=== PATIENT | male | born 1950 | race Caucasian/White ===

== ENCOUNTER 2016-07-04 08:57 | Inpatient (IN) | payer MEDICARE, OTHER ==
[~2016-07-04 08:57] MED LIST: Bisacodyl 5 MG Tab PO PRN; Lidocaine 1%/Sod Bicarbonate in NS 8.4% 1 ML Syringe IV PRN; Magnesium Hydroxide 400 MG/5 ML Susp 30 ML Cup PO PRN; Morphine 2 MG/ML Syringe IVPUSH PRN; Ondansetron 4 MG/2 ML SDV IVPUSH PRN; Sennosides 8.6 MG Tab PO PRN; Sodium Chloride 0.9% 10 ML Syringe FLUSH PRN
[2016-07-04] MEDS ORDERED: ceFAZolin 1 GM Vial ONE (09:14)
[2016-07-04] MEDS: Lactated Ringers 1,000 ML IV SCH ×2 (09:35→14:54)
[2016-07-04] MEDS ORDERED: Morphine PF 10 MG/10 ML SDV ONE (09:38)
--- NOTE | 2016-07-04 09:42 | PCM.PREANE ---
Preanesthetic Assessment - Anesthesia/Transfusion/Family Hx Anesthesia History: Prior Anesthesia Without Reaction Family History of Anesthesia Reaction: No Transfusion History: No Prior Transfusion(s) Type of Transfusion Reactions: Reports: Unknown - Review of Systems General: No Symptoms Pulmonary: Shortness of Breath (on occasion), Other (CXR shows atelectasis, smoker, sleep apnea) Cardiovascular: Other (stress test negative, EKG abnormal, HTN) Gastrointestinal: Other (occasion reflux) Neurological: No Symptoms Other: Reports: None - Physical Assessment NPO Status Date: 07/03/16 NPO Status Time: 23:00 Pulse: 83 O2 Sat by Pulse Oximetry: 92 Respiratory Rate: 16 Blood Pressure: 123/76 Temperature: 36.4 C Weight: 103 kg ASA Class: 3 Mental Status: Alert & Oriented x3 Dentition: Reports: Normal Dentition Thyro-Mental Finger Breadths: 3 Mouth Opening Finger Breadths: 3 ROM/Head Extension: Full Lungs: Clear to auscultation, Normal respiratory effort Cardiovascular: Regular Rate, Regular Rhythm - Lab Values: Laboratory Last Values MRSA (PCR) Negative 06/22/16 15:39 - Allergies Allergies/Adverse Reactions: Allergies Allergy/AdvReac Type Severity Reaction Status Date / Time Duvilzu-Vhn-Bok Reductase Allergy Muscle Verified 07/01/16 10:22 Inhibitor Weakness - Blood Blood Available: No Product(s) Available: None - Anesthesia Plan Pre-Op Medication Ordered: None - Acknowledgements Anesthesia Type Planned: Spinal Pt an Appropriate Candidate for the Planned Anesthesia: Yes Alternatives and Risks of Anesthesia Discussed w Pt/Guardian: Yes Pt/Guardian Understands and Agrees with Anesthesia Plan: Yes PreAnesthesia Questionnaire HEENT History: Reports: Allergic Rhinitis, Other (See Below) Other HEENT History: bruxism, jaw pain, wears glasses Cardiovascular History: Reports: Hypertension Respiratory History: Reports: Sleep Apnea Genitourinary History: Reports: Prostate Disorder, Other (See Below) Other Genitourinary History: enlarged prostate HIDE GRADER History: Reports: None Musculoskeletal History: Reports: Arthritis, Back Pain, Chronic, Other (See Below) Other Musculoskeletal History: sacroilitis Neurological History: Reports: Neuropathy, Peripheral Psychiatric History: Reports: Other (See Below) Other Psychiatric History: insomnia, irritability Endocrine/Metabolic History: Reports: None Hematologic History: Reports: None Immunologic History: Reports: None Oncologic (Cancer) History: Reports: None Dermatologic History: Reports: None - Past Surgical History Head Surgeries/Procedures: Reports: None GI Surgical History: Reports: Colonoscopy Musculoskeletal Surgical History: Reports: Other (See Below) Other Musculoskeletal Surgeries/Procedures:: neck surgery, low back surgery - SUBSTANCE USE Smoking Status *Q: Former Smoker Tobacco Use Within Last Twelve Months: Snuff/Dip Recreational Drug Use History: No - HOME MEDS Home Medications: Home Meds Ascorbic Acid [Vitamin C] 500 mg PO DAILY 07/01/16 [History] Cholecalciferol (Vitamin D3) [Vitamin D3] 2,000 unit PO DAILY 07/01/16 [History] Citalopram [Citalopram HBr] 40 mg PO DAILY 07/01/16 [History] Dutasteride 0.5 mg PO DAILY 07/01/16 [History] Gelatin 600 mg PO DAILY 07/01/16 [History] Gluc/Palomo-Msm#1/Vit C/Geoffrey/Bor [Iunlrwr-Zlraw-UBY Complex Cplt] 1 tab PO DAILY 07/01/16 [History] Lisinopril 40 mg PO DAILY 07/01/16 [History] Meloxicam [Meloxicam] 15 mg PO DAILY 07/01/16 [History] Tamsulosin HCl [Tamsulosin HCl] 0.4 mg PO DAILY 07/01/16 [History] Zolpidem Tartrate [Zolpidem Tartrate] 10 mg PO BEDTIME 07/01/16 [History] traMADol HCl [Tramadol HCl] 100 mg PO BID 07/01/16 [History] - CURRENT (IN HOUSE) MEDS Current Meds: Current Medications Aspirin (Ecotrin) 325 mg PO BID TARYN Bisacodyl (Dulcolax) 5 mg PO DAILY PRN PRN Reason: Constipation Morphine Sulfate 8 mg/Epinephrine HCl 0.3 mg/Cefuroxime Sodium 750 mg/Ketorolac Tromethamine 30 mg/Sodium Chloride 27.9 ml 0 mg .XX ONETIME ONE Stop: 07/04/16 10:01 Cyclobenzaprine HCl (Flexeril) 10 mg PO TID PRN PRN Reason: Spasms Docusate Sodium (Colace) 100 mg PO BID TARYN Famotidine (Pepcid) 20 mg PO Q12H TARYN Lactated Ringer's (Ringers, Lactated) 1,000 mls @ 125 mls/hr IV ASDIRECTED TARYN Cefazolin Sodium/Dextrose 2 gm (/ Premix) 50 mls @ 100 mls/hr IV Q8H [facility] Stop: 07/04/16 23:44 Lidocaine/Sodium Bicarbonate (Buffered Lidocaine 1% In Ns 8.4%) 0.25 ml IV ONETIME PRN PRN Reason: Prior to IV Start Magnesium Hydroxide (Milk Of Magnesia) 30 ml PO BID PRN PRN Reason: Constipation Morphine Sulfate (Morphine) 2 mg IVPUSH Q2H PRN PRN Reason: Breakthrough Pain Naloxone HCl (Narcan) 0.1 mg IVPUSH Q5M PRN PRN Reason: Oversedation Stop: 07/04/16 07:24 Ondansetron HCl (Zofran) 4 mg IVPUSH Q6H PRN PRN Reason: Nausea/Vomiting Oxycodone/Acetaminophen (Percocet 325-5 Mg) 1 - 2 tab PO Q4H PRN PRN Reason: Pain Senna (Senna) 8.6 mg PO BID PRN PRN Reason: Constipation Sodium Chloride (Saline Flush) 10 ml FLUSH ASDIRECTED PRN PRN Reason: Keep Vein Open Discontinued Medications Bupivacaine HCl (Marcaine 0.25%) Confirm Administered Dose 30 ml .ROUTE .STK- MED ONE Stop: 07/04/16 09:15 Cefazolin Sodium (Ancef) Confirm Administered Dose 1 gm .ROUTE .STK-MED ONE Stop: 07/04/16 09:15 Cefazolin Sodium (Ancef) Confirm Administered Dose 2 gm .ROUTE .STK-MED ONE Stop: 07/04/16 09:41 Iodine (Iodine 2% Mild Tincture) Confirm Administered Dose 30 ml .ROUTE .STK- MED ONE Stop: 07/04/16 09:15 Morphine Sulfate (Duramorph Pf) Confirm Administered Dose 10 mg .ROUTE .STK-MED ONE Stop: 07/04/16 09:39 Tranexamic Acid (Cyklokapron) Confirm Administered Dose 1,000 mg .ROUTE .STK- MED ONE Stop: 07/04/16 09:15
[2016-07-04] MEDS ORDERED: diphenhydrAMINE 50 MG/ML SDV IVPUSH PRN (09:47)
[2016-07-04] MEDS ORDERED: fentaNYL 100 MCG/2 ML SDV IVPUSH PRN (09:47)
[2016-07-04] MEDS ORDERED: Ondansetron 4 MG/2 ML SDV IVPUSH PRN (09:47)
[2016-07-04] MEDS ORDERED: Midazolam 1 MG/ML 2 ML SDV ONE (10:06)
[2016-07-04] MEDS ORDERED: Propofol 200 MG/20 ML SDV ONE ×4 (10:07→11:45)
[2016-07-04] MEDS ORDERED: Phenylephrine/Normal Saline 100 MCG/ML 10 ML Syringe ONE ×2 (10:51→11:34)
[2016-07-04] MEDS ORDERED: ePHEDrine/Normal Saline 25 MG/5 ML Syringe ONE ×3 (10:57→11:27)
[2016-07-04] MEDS ORDERED: Naloxone 0.4 MG/ML SDV IVPUSH PRN (11:00)
[2016-07-04] MEDS: Iodine/Sodium Iodide 2% Tincture 30 ML Bottle ONE ×2 (11:03→11:45)
[2016-07-04] MEDS: ceFAZolin 1 GM Vial ONE ×2 (11:05→11:48)
[2016-07-04] MEDS: Morphine 8 MG, EPINEPHrine 0.3 MG, Cefuroxime 750 MG, Ketorolac 30 MG, Sodium Chloride ... ONE ×10 (11:06→11:52)
[2016-07-04] MEDS: Bupivacaine 0.25% 30 ML SDV ONE ×2 (11:06→11:53)
[2016-07-04] MEDS ORDERED: Lactated Ringers 1,000 ML ONE (11:23)
[2016-07-04] MEDS ORDERED: fentaNYL 100 MCG/2 ML SDV ONE (11:58)
--- NOTE | 2016-07-04 12:28 | PCM.POSTAN ---
POST ANESTHESIA ASSESSMENT - MENTAL STATUS Mental Status: alert, oriented - VITAL SIGNS Pulse Rate: 80 SaO2: 93 Resp Rate: 12 Blood Pressure: 94/63 Temperature: 36.7 C - RESPIRATORY Respiratory Status: respiratory rate WNL, airway patent, O2 saturation stable - CARDIOVASCULAR CV Status: pulse rate WNL, blood pressure stable - GASTROINTESTINAL GI Status: no symptoms - PAIN Pain Score: 0 - POST OP HYDRATION Hydration Status: adequate & stable
[2016-07-04] MEDS ORDERED: Citalopram 20 MG Tab PO SCH (12:30)
[2016-07-04] MEDS ORDERED: Finasteride 5 MG Tab PO SCH (13:45)
--- NOTE | 2016-07-04 13:46 | CR ---
Pelvis and right hip: AP view of the pelvis was obtained as well as lateral view of the right hip. Comparison: Previous pelvis and right hip study of 07/29/15. Right hip prosthesis is seen. Components are aligned. Soft tissue air around the right hip from the surgical procedure is seen. Joint space within the left hip is preserved. Impression: 1. Recently placed right hip prosthesis. AP pelvis and lateral right hip exam is otherwise unremarkable. Diagnostic code #2
--- NOTE | 2016-07-04 15:12 | PCM.CONS ---
H&P History of Present Illness - General Date of Service: 07/04/16 Admit Problem/Dx: Admission Diagnosis/Problem Admission Diagnosis/Problem Osteoarthritis of hip Source of Information: Patient, Old Records, Police, Provider, RN Notes Reviewed History Limitations: Reports: Physical Impairment - History of Present Illness Initial Comments - Free Text/Narative: This is a 65-year-old, white male, with past medical history of HTN, BERTHA on CPAP , OA/DJD, AR, Back Pain, Peripheral Neuropathy, Insomnia and Bruxism who underwent status post right total hip arthroplasty post operative day zero. Patient is doing relatively well. Currently, his pain is controlled. He denies any acute issues. Medicine was consulted for postoperative care. Right Hip Pain Score (Numeric/FACES): 7 - Related Data Allergies/Adverse Reactions: Allergies Allergy/AdvReac Type Severity Reaction Status Date / Time Pncvurz-Jvn-Eli Reductase AdvReac Muscle Verified 07/04/16 11:14 Inhibitor Weakness Home Medications: Home Meds Ascorbic Acid [Vitamin C] 500 mg PO DAILY 07/01/16 [History] Cholecalciferol (Vitamin D3) [Vitamin D3] 2,000 unit PO DAILY 07/01/16 [History] Citalopram [Citalopram HBr] 40 mg PO Q2D 07/01/16 [History] Dutasteride 0.5 mg PO DAILY 07/01/16 [History] Gelatin 600 mg PO DAILY 07/01/16 [History] Gluc/Palomo-Msm#1/Vit C/Geoffrey/Bor [Plqyuwq-Ykclm-FDX Complex Cplt] 1 tab PO DAILY 07/01/16 [History] Lisinopril 40 mg PO DAILY 07/01/16 [History] Meloxicam [Meloxicam] 15 mg PO DAILY 07/01/16 [History] Tamsulosin HCl [Tamsulosin HCl] 0.4 mg PO DAILY 07/01/16 [History] Zolpidem Tartrate [Zolpidem Tartrate] 10 mg PO BEDTIME 07/01/16 [History] traMADol HCl [Tramadol HCl] 100 mg PO BID 07/01/16 [History] Cyclobenzaprine [Flexeril] 10 mg PO BEDTIME 07/04/16 [History] Past Medical History HEENT History: Reports: Allergic Rhinitis, Other (See Below) Other HEENT History: bruxism, jaw pain, wears glasses Cardiovascular History: Reports: Hypertension Respiratory History: Reports: Sleep Apnea, Other (See Below) Other Respiratory History: Uses CPAP Gastrointestinal History: Reports: None Genitourinary History: Reports: Prostate Disorder, Other (See Below) Other Genitourinary History: enlarged prostate CONSERVATION OFFICER History: Reports: None Musculoskeletal History: Reports: Arthritis, Back Pain, Chronic, Other (See Below) Other Musculoskeletal History: sacroilitis Neurological History: Reports: Neuropathy, Peripheral Psychiatric History: Reports: Other (See Below) Other Psychiatric History: insomnia, irritability Endocrine/Metabolic History: Reports: None Hematologic History: Reports: None Immunologic History: Reports: None Oncologic (Cancer) History: Reports: None Dermatologic History: Reports: None - Infectious Disease History Infectious Disease History: Reports: None - Past Surgical History Head Surgeries/Procedures: Reports: None HEENT Surgical History: Reports: None Cardiovascular Surgical History: Reports: None Respiratory Surgical History: Reports: None GI Surgical History: Reports: Colonoscopy Male Surgical History: Reports: None Neurological Surgical History: Reports: Lumbar Spine, Other (See Below) Other Neurological Surgeries/Procedures: Cervical fusion Musculoskeletal Surgical History: Reports: Other (See Below) Other Musculoskeletal Surgeries/Procedures:: cervical surgery, low back surgery Dermatological Surgical History: Reports: None Social & Family History - Family History Family Medical History: Unobtainable - Tobacco Use Smoking Status *Q: Former Smoker Used Tobacco, but Quit: Yes Month Tobacco Last Used: Mar 2016 Tobacco Use Comment: Patient states he quit chewing tobacco on March 16, 2016 - Recreational Drug Use Recreational Drug Use: No H&P Review of Systems - Review of Systems: Review Of Systems: See Below General: Denies: Fever, Chills, Malaise, Weakness, Fatigue HEENT: Reports: No Symptoms Pulmonary: Denies: Shortness of Breath Cardiovascular: Denies: Chest Pain Gastrointestinal: Denies: Abdominal Pain, Nausea, Vomiting Genitourinary: Reports: No Symptoms Musculoskeletal: Reports: Joint Pain Skin: Denies: Cyanosis, Pruritis Psychiatric: Denies: Confusion, Depression, Anxiety, Agitation, Hallucinations Neurological: Reports: Difficulty Walking, Gait Disturbance. Denies: Confusion Hematologic/Lymphatic: Reports: No Symptoms Immunologic: Reports: No Symptoms Exam - Exam Exam: See Below - Vital Signs Vital Signs: Last Vital Signs Temp 36.2 C 07/04/16 13:10 Pulse 80 07/04/16 12:28 Resp 14 07/04/16 13:10 BP 99/64 07/04/16 13:10 Pulse Ox 94 L 07/04/16 13:10 Weight: 103.238 kg - Exam Quality Assessment: No: Supplemental Oxygen General: Alert, Oriented, Cooperative. No: Mild Distress HEENT: Conjunctiva Clear, EACs Clear, EOMI, Hearing Intact, Mucosa Moist & [place] , Nares Patent, Normal Nasal Septum, Posterior Pharynx Clear, Pupils Equal, Pupils Reactive Neck: Supple, Trachea Midline Lungs: Clear to Auscultation, Normal Respiratory Effort Cardiovascular: Regular Rate, Regular Rhythm Abdomen: Normal Bowel Sounds, Soft. No: Organomegaly, Tenderness (Male) Exam: Other (indwelling sanon catheter) Rectal (Males) Exam: Deferred Back Exam: Normal Inspection, Decreased Range of Motion Extremities: Normal Inspection, Normal Pulses. No: Cyanosis, Edema, Increased Warmth Peripheral Pulses: 2+: Posterior Tibial (L), Posterior Tibial (R), Dorsalis Pedis (L), Dorsalis Pedis (R) Skin: Warm, Dry, Intact Neuro Extensive - Mental Status: Oriented x3, Normal Cognition, Memory Intact Neuro Extensive - Motor, Sensory, Reflexes: CN II-XII Intact (limited but fairly stable), Abnormal Gait Psychiatric: Alert, Normal Affect, Normal Mood - Patient Data Lab Results last 24 hrs: Laboratory Results - last 24 hr 07/04/16 Range/Units 09:36 Blood Type A POSITIVE Gel Antibody Screen Negative Consult PN Assessment/Plan POD#: 0 Procedures: Procedures ASSAY OF FERRITIN (06/20/16) ASSAY OF PREALBUMIN (06/20/16) ASSAY THYROID STIM HORMONE (01/05/16) CARDIOVASCULAR STRESS TEST (06/24/16) CHEST X-RAY 2VW FRONTAL&LATL (06/20/16) COMPLETE CBC W/AUTO DIFF WBC (06/20/16) COMPREHEN METABOLIC PANEL (06/20/16) DRAIN/INJ JOINT/BURSA W/O US (01/01/16) HT MUSCLE IMAGE SPECT MULT (06/24/16) LIPID PANEL (01/05/16) PROTHROMBIN TIME (06/20/16) THROMBOPLASTIN TIME PARTIAL (06/20/16) URINE CULTURE/COLONY COUNT (06/21/16) VITAMIN D 25 HYDROXY (06/20/16) X-RAY EXAM HIP UNI 1 VIEW (07/29/15) X-RAY EXAM L-S SPINE 2/3 VWS (07/29/15) Problem List Initiated/Reviewed/Updated: Yes Plan: Assessment: Acute: Post-Operative Care State - Stable - Continue to monitor for hemodynamic instability S/p Right Total Hip Arthroplasty - Stable - DVT and Pain Management as per primary team Hx/o Chronic Pain Right Hip - Pain Management as per primary team Chronic: HTN BERTHA on CPAP OA AR Back Pain Peripheral Neuropathy BPH Bruxism Insomnia Plan: He is clinically stable Routine AM labs Continue home meds Hold Ambien and will try Restoril tonight CPAP to use QHS PT/OT consult IS q2 awake Thank you for the opportunity to participate in the management of this patient. Requesting Provider: Dr. Paz Date Consult Requested: 07/04/16 Reason for Consult: Post-Operative Care Patient History Reviewed: Yes Admission H&P Reviewed: Yes Consult Result/Summary: Stable
[2016-07-04] MEDS: Lisinopril 20 MG Tab PO SCH (16:42)
[2016-07-04] MEDS: Cyclobenzaprine 10 MG Tab PO PRN (16:43)
[2016-07-04] MEDS: Acetaminophen/oxyCODONE 325-5 MG Tab PO PRN ×2 (16:45→21:29)
[2016-07-04] MEDS ORDERED: Tamsulosin 0.4 MG Cap.ER PO SCH (17:30)
[2016-07-04] MEDS ORDERED: Temazepam 30 MG Cap PO PRN (18:24)
[2016-07-04] MEDS: ceFAZolin 2 GM in Premix Bag 1 BAG IV SCH (19:12)
[2016-07-04] MEDS ORDERED: LORazepam 2 MG/ML MDV IVPUSH ONE (21:00)
[2016-07-04] MEDS: Docusate Sodium 100 MG Cap PO SCH (21:29)
[2016-07-04] MEDS: Famotidine 20 MG Tab PO SCH (21:29)
[2016-07-05] MEDS: Cyclobenzaprine 10 MG Tab PO PRN ×3 (02:43→16:10)
[2016-07-05] MEDS: Acetaminophen/oxyCODONE 325-5 MG Tab PO PRN ×4 (02:43→16:10)
[2016-07-05] MEDS: ceFAZolin 2 GM in Premix Bag 1 BAG IV SCH ×2 (03:00→10:48)
[2016-07-05] MEDS: Famotidine 20 MG Tab PO SCH (08:36)
[2016-07-05] MEDS: Docusate Sodium 100 MG Cap PO SCH (08:36)
[2016-07-05] MEDS: Lisinopril 20 MG Tab PO SCH (08:37)
[2016-07-05] MEDS ORDERED: Aspirin 325 MG Tab.EC PO SCH (09:00)
[2016-07-05] MEDS ORDERED: Cholecalciferol (Vitamin D3) 1,000 Unit Tab PO SCH (09:00)
--- NOTE | 2016-07-05 09:38 | PCM.PN ---
- General Info Date of Service: 07/05/16 Admission Dx/Problem (Free Text): Admission Diagnosis/Problem Admission Diagnosis/Problem Osteoarthritis of hip POD #[address] Paz; pain under good control. No nausea. Worked with PT this morning. Plans for dc home today. Functional Status: Reports: pain controlled, tolerating diet, ambulating, urinating - Review of Systems General: Reports: No Symptoms HEENT: Reports: no symptoms Pulmonary: Reports: no symptoms. Denies: shortness of breath, cough Cardiovascular: Reports: No Symptoms. Denies: Chest Pain, Palpitations, Dyspnea on Exertion Gastrointestinal: Reports: No symptoms Genitourinary: Reports: no symptoms. Denies: retention Musculoskeletal: Reports: leg pain Neurological: Reports: No Symptoms Psychiatric: Reports: no symptoms - Patient Data Vitals - most recent: Last Vital Signs Temp 98.8 F 07/05/16 08:00 Pulse 92 07/05/16 08:00 Resp 18 07/05/16 08:00 BP 112/65 07/05/16 08:37 Pulse Ox 96 07/05/16 09:00 Weight - most recent: 227 lb 9.6 oz I&O - last 24 hours: Intake & Output 07/04/16 07/05/16 07/05/16 22:59 06:59 14:59 Intake Total 400 1050 Output Total 300 500 Balance 100 550 Lab Results last 24 hrs: Laboratory Results - last 24 hr 07/04/16 07/05/16 07/05/16 Range/Units 09:36 06:29 06:29 WBC 9.53 H (4.23-9.07) K/mm3 RBC 4.25 L (4.63-6.08) M/mm3 Hgb 12.2 L (13.7-17.5) gm/L Hct 36.2 L (40.1-51.0) % MCV 85.2 (79.0-92.2) fl MCH 28.7 (25.7-32.2) pg MCHC 33.7 (32.2-35.5) g/dl RDW Std Deviation 41.1 (35.1-43.9) fL Plt Count 191 (163-337) K/mm3 MPV 9.3 L (9.4-12.3) fl Neut % (Auto) 77.0 H (34.0-67.9) % Lymph % (Auto) 13.3 L (21.8-53.1) % [place] % (Auto) 9.1 (5.3-12.2) % Eos % (Auto) 0.3 L (0.8-7.0) Baso % (Auto) 0.2 (0.1-1.2) % Neut # (Auto) 7.33 H (1.78-5.38) K/mm3 Lymph # (Auto) 1.27 L (1.32-3.57) K/mm3 [place] # (Auto) 0.87 H (0.30-0.82) K/mm3 Eos # (Auto) 0.03 L (0.04-0.54) K/mm3 Baso # (Auto) 0.02 (0.01-0.08) K/mm3 Sodium 136 (136-145) mEq/L Potassium 4.5 (3.5-5.1) mEq/L Chloride 102 (98-107) mEq/L Carbon Dioxide 24 (21-32) mEq/L Anion Gap 14.5 (5-15) BUN 19 H (7-18) mg/dL Creatinine 1.1 (0.7-1.3) mg/dL Est Cr Clr Drug Dosing 68.21 mL/min Estimated GFR (MDRD) > 60 (>60) mL/min BUN/Creatinine Ratio 17.3 (14-18) Glucose 144 H (80-115) mg/dL Calcium 8.3 L (8.5-10.1) mg/dL Total Bilirubin 0.5 (0.2-1.0) mg/dL AST 26 (15-37) U/L ALT 29 (16-63) U/L Alkaline Phosphatase 37 L (46-116) U/L Total Protein 6.0 L (6.4-8.2) g/dl Albumin 3.0 L (3.4-5.0) g/dl Globulin 3.0 gm/dL Albumin/Globulin Ratio 1.0 (1-2) Blood Type A POSITIVE Gel Antibody Screen Negative Med Orders - Current: Current Medications Aspirin (Ecotrin) 325 mg PO BID TARY[facility] Last Admin: 07/05/16 08:39 Dose: 325 mg Bisacodyl (Dulcolax) 5 mg PO DAILY PRN PRN Reason: Constipation Cholecalciferol (Vitamin D3) 2,000 units PO DAILY [facility] Last Admin: 07/05/16 08:36 Dose: 2,000 units Citalopram Hydrobromide (Celexa) 40 mg PO Q2D [facility] Last Admin: 07/04/16 16:43 Dose: 40 mg Cyclobenzaprine HCl (Flexeril) 10 mg PO TID PRN PRN Reason: Spasms Last Admin: 07/05/16 08:37 Dose: 10 mg Docusate Sodium (Colace) 100 mg PO BID [facility] Last Admin: 07/05/16 08:36 Dose: 100 mg Famotidine (Pepcid) 20 mg PO BID [facility] Last Admin: 07/05/16 08:36 Dose: 20 mg Finasteride (Proscar) 5 mg PO BEDTIME [facility] Cefazolin Sodium/Dextrose 2 gm (/ Premix) 50 mls @ 100 mls/hr IV Q8H [facility] Stop: 07/05/16 10:29 Last Admin: 07/05/16 03:00 Dose: 100 mls/hr Lisinopril (Prinivil) 40 mg PO DAILY [facility] Last Admin: 07/05/16 08:37 Dose: 40 mg Magnesium Hydroxide (Milk Of Magnesia) 30 ml PO BID PRN PRN Reason: Constipation Morphine Sulfate (Morphine) 2 mg IVPUSH Q2H PRN PRN Reason: Breakthrough Pain Ondansetron HCl (Zofran) 4 mg IVPUSH Q6H PRN PRN Reason: Nausea/Vomiting Oxycodone/Acetaminophen (Percocet 325-5 Mg) 1 - 2 tab PO Q4H PRN PRN Reason: Pain Last Admin: 07/05/16 07:59 Dose: 2 tab Senna (Senna) 8.6 mg PO BID PRN PRN Reason: Constipation Tamsulosin HCl (Flomax) 0.4 mg PO BEDTIME [facility] Temazepam (Restoril) 30 mg PO BEDTIME PRN PRN Reason: Insomnia Discontinued Medications Bupivacaine HCl (Marcaine 0.25%) Confirm Administered Dose 30 ml .ROUTE .STK- MED ONE Stop: 07/04/16 09:15 Last Admin: 07/04/16 11:53 Dose: 30 ml Cefazolin Sodium (Ancef) Confirm Administered Dose 1 gm .ROUTE .STK-MED ONE Stop: 07/04/16 09:15 Cefazolin Sodium (Ancef) Confirm Administered Dose 2 gm .ROUTE .STK-MED ONE Stop: 07/04/16 09:41 Last Admin: 07/04/16 11:48 Dose: 2 gm Morphine Sulfate 8 mg/Epinephrine HCl 0.3 mg/Cefuroxime Sodium 750 mg/Ketorolac Tromethamine 30 mg/Sodium Chloride 27.9 ml 0 mg .XX ONETIME ONE Stop: 07/04/16 10:01 Last Admin: 07/04/16 11:52 Dose: 788.3 mg Diphenhydramine HCl (Benadryl) 25 mg IVPUSH Q6H PRN PRN Reason: itching Stop: 07/04/16 12:00 Ephedrine Sulfate (Ephedrine In Ns) Confirm Administered Dose 25 mg .ROUTE .STK- MED ONE Stop: 07/04/16 10:58 Ephedrine Sulfate (Ephedrine In Ns) Confirm Administered Dose 25 mg .ROUTE .STK- MED ONE Stop: 07/04/16 11:23 Ephedrine Sulfate (Ephedrine In Ns) Confirm Administered Dose 25 mg .ROUTE .STK- MED ONE Stop: 07/04/16 11:28 Fentanyl (Sublimaze) 50 mcg IVPUSH Q5M PRN PRN Reason: pain Stop: 07/04/16 12:00 Fentanyl (Sublimaze) Confirm Administered Dose 100 mcg .ROUTE .STK-MED ONE Stop: 07/04/16 11:59 Finasteride (Proscar) 5 mg PO DAILY [facility] Last Admin: 07/04/16 20:43 Dose: 5 mg Lactated Ringer's (Ringers, Lactated) 1,000 mls @ 125 mls/hr IV ASDIRECTED [facility] Stop: 07/04/16 23:00 Last Admin: 07/04/16 14:54 Dose: 125 mls/hr Lactated Ringer's (Ringers, Lactated) Confirm Administered Dose 1,000 mls @ as directed .ROUTE .STK-MED ONE Stop: 07/04/16 11:24 Iodine (Iodine 2% Mild Tincture) Confirm Administered Dose 30 ml .ROUTE .STK- MED ONE Stop: 07/04/16 09:15 Last Admin: 07/04/16 11:45 Dose: 18 ml Lidocaine/Sodium Bicarbonate (Buffered Lidocaine 1% In Ns 8.4%) 0.25 ml IV ONETIME PRN PRN Reason: Prior to IV Start Last Admin: 07/04/16 09:35 Dose: 0.25 ml Lorazepam (Ativan) 1 mg IVPUSH BEDTIME ONE Stop: 07/04/16 21:01 Last Admin: 07/04/16 23:02 Dose: 1 mg Midazolam HCl (Versed 1 Mg/Ml) Confirm Administered Dose 2 mg .ROUTE .STK-MED ONE Stop: 07/04/16 10:07 Morphine Sulfate (Duramorph Pf) Confirm Administered Dose 10 mg .ROUTE .STK-MED ONE Stop: 07/04/16 09:39 Naloxone HCl (Narcan) 0.1 mg IVPUSH Q5M PRN PRN Reason: Oversedation Stop: 07/04/16 11:16 Ondansetron HCl (Zofran) 4 mg IVPUSH ONETIME PRN PRN Reason: Nausea/Vomiting Stop: 07/04/16 12:00 Phenylephrine HCl (Phenylephrine In Ns 100 Mcg/Ml) Confirm Administered Dose 1 mg .ROUTE .STK-MED ONE Stop: 07/04/16 10:52 Phenylephrine HCl (Phenylephrine In Ns 100 Mcg/Ml) Confirm Administered Dose 1 mg .ROUTE .STK-MED ONE Stop: 07/04/16 11:35 Propofol (Diprivan 20 Ml) Confirm Administered Dose 200 mg .ROUTE .STK-MED ONE Stop: 07/04/16 10:08 Propofol (Diprivan 20 Ml) Confirm Administered Dose 200 mg .ROUTE .STK-MED ONE Stop: 07/04/16 10:08 Propofol (Diprivan 20 Ml) Confirm Administered Dose 200 mg .ROUTE .STK-MED ONE Stop: 07/04/16 11:14 Propofol (Diprivan 20 Ml) Confirm Administered Dose 200 mg .ROUTE .STK-MED ONE Stop: 07/04/16 11:46 Sodium Chloride (Saline Flush) 10 ml FLUSH ASDIRECTED PRN PRN Reason: Keep Vein Open Tamsulosin HCl (Flomax) 0.4 mg PO DAILY@1730 [facility]N Last Admin: 07/04/16 20:43 Dose: 0.4 mg Tranexamic Acid (Cyklokapron) Confirm Administered Dose 1,000 mg .ROUTE .STK- MED ONE Stop: 07/04/16 09:15 Last Admin: 07/04/16 11:58 Dose: 1,000 mg - Exam Quality Assessment: DVT prophylaxis General: alert, oriented, cooperative, no acute distress HEENT: Pupils equal, Pupils reactive, EOMI, Mucous membr. moist/pink Neck: supple Lungs: Clear to auscultation, Normal respiratory effort Cardiovascular: Regular Rate, Regular Rhythm Abdomen: bowel sounds present, soft, no tenderness, no distension (Male) Exam: Deferred Extremities: other (scd's/ teds) Peripheral Pulses: 1+: Dorsalis Pedis (L), Dorsalis Pedis (R) Skin: warm, dry Wound/Incisions: dressing dry and intact Neurological: no new focal deficit Psy/Mental Status: alert, normal affect, normal mood - Problem List & Annotations (1) S/P total hip arthroplasty SNOMED Code(s): 016487390935, 684401316997 Code(s): Z96.649 - PRESENCE OF UNSPECIFIED ARTIFICIAL HIP JOINT Status: Acute Priority: High Current Visit: Yes Qualifiers: Laterality: right Qualified Code(s): Z96.641 - Presence of right artificial hip joint (2) Osteoarthritis SNOMED Code(s): 142715779 Code(s): M19.90 - UNSPECIFIED OSTEOARTHRITIS, UNSPECIFIED SITE Status: Acute Priority: High Current Visit: Yes Qualifiers: Osteoarthritis location: hip Osteoarthritis type: primary Laterality: right Qualified Code(s): M16.11 - Unilateral primary osteoarthritis, right hip (3) BPH (benign prostatic hyperplasia) SNOMED Code(s): 193920272, 810559909 Code(s): N40.0 - BENIGN PROSTATIC HYPERPLASIA WITHOUT LOWER URINRY TRACT SYMP Status: Chronic Priority: Medium Current Visit: Yes Qualifiers: Lower urinary tract symptom presence: presence of symptoms unspecified (4) BERTHA on CPAP SNOMED Code(s): 03326393 Code(s): G47.33 - OBSTRUCTIVE SLEEP APNEA (ADULT) (PEDIATRIC); Z99.89 - DEPENDENCE ON OTHER ENABLING MACHINES AND DEVICES Status: Chronic Priority: Medium Current Visit: No (5) HTN (hypertension) SNOMED Code(s): 64740614 Code(s): I10 - ESSENTIAL (PRIMARY) HYPERTENSION Status: Chronic Priority : Medium Current Visit: No Qualifiers: Hypertension type: essential hypertension Qualified Code(s): I10 - Essential (primary) hypertension - Problem List Review Problem List Initiated/Reviewed/Updated: Yes - Plan Plan:: I/P: S/P Rt PRUDENCE with Dr. Paz: POD #1 -Pain managment and DVT prophylax per ortho -PT/OT -IS, C&DB -hgb 12.2 today; other labs stable -VSS; on RA Urinary retention postop with hx of BPH--resolved -patient did void spontaneously this afternoon Chronic conditions: BERTHA on CPAP HTN- cont home meds, stable. Other: GI/DVT prophylax as above PT/OT CM/SW for assist with DC planning; plans DC home --OK from hospitalist standpoint for DC today, is medically stable. Patient is Full Code status.
--- NOTE | 2016-07-05 10:08 | PCM48HPAN ---
Post Anesthesia Note - EVALUATION WITHIN 48HRS OF ANESTHETIC Vital Signs in Normal Range: Yes Patient Participated in Evaluation: Yes Respiratory Function Stable: Yes Airway Patent: Yes Cardiovascular Function Stable: Yes Hydration Status Stable: Yes Pain Control Satisfactory: Yes (taking pain meds) Nausea and Vomiting Control Satisfactory: Yes Mental Status Recovered: Yes
[2016-07-05] MEDS ORDERED: Finasteride 5 MG Tab PO ONE (10:42)
[2016-07-05 11:10] VITALS: BP 115/70
--- NOTE | 2016-07-05 17:06 | PCM.SURGPN ---
- General Info Date of Service: 07/05/16 POD#: 1 Functional Status: Reports: pain controlled, tolerating diet, ambulating, urinating. Denies: new symptoms - Review of Systems Musculoskeletal: Reports: other (The pt feels prepared for discharge to home. He progressed well with P.T. today.) - Patient Data Vitals - most recent: Last Vital Signs Temp 98.8 F 07/05/16 11:08 Pulse 100 07/05/16 11:08 Resp 16 07/05/16 11:08 BP 115/70 07/05/16 11:08 Pulse Ox 97 07/05/16 12:00 Weight - most recent: 227 lb 9.6 oz I&O - last 24 hours: Intake & Output 07/05/16 07/05/16 07/05/16 06:59 14:59 22:59 Intake Total 1050 210 Output Total 500 400 Balance 550 -190 Lab Results last 24 hrs: Laboratory Results - last 24 hr 07/04/16 07/05/16 07/05/16 Range/Units 09:36 06:29 06:29 WBC 9.53 H (4.23-9.07) K/mm3 RBC 4.25 L (4.63-6.08) M/mm3 Hgb 12.2 L (13.7-17.5) gm/L Hct 36.2 L (40.1-51.0) % MCV 85.2 (79.0-92.2) fl MCH 28.7 (25.7-32.2) pg MCHC 33.7 (32.2-35.5) g/dl RDW Std Deviation 41.1 (35.1-43.9) fL Plt Count 191 (163-337) K/mm3 MPV 9.3 L (9.4-12.3) fl Neut % (Auto) 77.0 H (34.0-67.9) % Lymph % (Auto) 13.3 L (21.8-53.1) % [place] % (Auto) 9.1 (5.3-12.2) % Eos % (Auto) 0.3 L (0.8-7.0) Baso % (Auto) 0.2 (0.1-1.2) % Neut # (Auto) 7.33 H (1.78-5.38) K/mm3 Lymph # (Auto) 1.27 L (1.32-3.57) K/mm3 [place] # (Auto) 0.87 H (0.30-0.82) K/mm3 Eos # (Auto) 0.03 L (0.04-0.54) K/mm3 Baso # (Auto) 0.02 (0.01-0.08) K/mm3 Sodium 136 (136-145) mEq/L Potassium 4.5 (3.5-5.1) mEq/L Chloride 102 (98-107) mEq/L Carbon Dioxide 24 (21-32) mEq/L Anion Gap 14.5 (5-15) BUN 19 H (7-18) mg/dL Creatinine 1.1 (0.7-1.3) mg/dL Est Cr Clr Drug Dosing 68.21 mL/min Estimated GFR (MDRD) > 60 (>60) mL/min BUN/Creatinine Ratio 17.3 (14-18) Glucose 144 H (80-115) mg/dL Calcium 8.3 L (8.5-10.1) mg/dL Total Bilirubin 0.5 (0.2-1.0) mg/dL AST 26 (15-37) U/L ALT 29 (16-63) U/L Alkaline Phosphatase 37 L (46-116) U/L Total Protein 6.0 L (6.4-8.2) g/dl Albumin 3.0 L (3.4-5.0) g/dl Globulin 3.0 gm/dL Albumin/Globulin Ratio 1.0 (1-2) Blood Type A POSITIVE Gel Antibody Screen Negative Med Orders - Current: Current Medications Aspirin (Ecotrin) 325 mg PO BID [facility] Last Admin: 07/05/16 08:39 Dose: 325 mg Bisacodyl (Dulcolax) 5 mg PO DAILY PRN PRN Reason: Constipation Cholecalciferol (Vitamin D3) 2,000 units PO DAILY [facility] Last Admin: 07/05/16 08:36 Dose: 2,000 units Citalopram Hydrobromide (Celexa) 40 mg PO Q2D [facility] Last Admin: 07/04/16 16:43 Dose: 40 mg Cyclobenzaprine HCl (Flexeril) 10 mg PO TID PRN PRN Reason: Spasms Last Admin: 07/05/16 16:10 Dose: 10 mg Docusate Sodium (Colace) 100 mg PO BID [facility] Last Admin: 07/05/16 08:36 Dose: 100 mg Famotidine (Pepcid) 20 mg PO BID [facility] Last Admin: 07/05/16 08:36 Dose: 20 mg Finasteride (Proscar) 5 mg PO BEDTIME [facility] Lisinopril (Prinivil) 40 mg PO DAILY [facility] Last Admin: 07/05/16 08:37 Dose: 40 mg Magnesium Hydroxide (Milk Of Magnesia) 30 ml PO BID PRN PRN Reason: Constipation Morphine Sulfate (Morphine) 2 mg IVPUSH Q2H PRN PRN Reason: Breakthrough Pain Ondansetron HCl (Zofran) 4 mg IVPUSH Q6H PRN PRN Reason: Nausea/Vomiting Oxycodone/Acetaminophen (Percocet 325-5 Mg) 1 - 2 tab PO Q4H PRN PRN Reason: Pain Last Admin: 07/05/16 16:10 Dose: 2 tab Senna (Senna) 8.6 mg PO BID PRN PRN Reason: Constipation Tamsulosin HCl (Flomax) 0.4 mg PO BEDTIME [facility] Temazepam (Restoril) 30 mg PO BEDTIME PRN PRN Reason: Insomnia Discontinued Medications Bupivacaine HCl (Marcaine 0.25%) Confirm Administered Dose 30 ml .ROUTE .STK- MED ONE Stop: 07/04/16 09:15 Last Admin: 07/04/16 11:53 Dose: 30 ml Cefazolin Sodium (Ancef) Confirm Administered Dose 1 gm .ROUTE .STK-MED ONE Stop: 07/04/16 09:15 Cefazolin Sodium (Ancef) Confirm Administered Dose 2 gm .ROUTE .STK-MED ONE Stop: 07/04/16 09:41 Last Admin: 07/04/16 11:48 Dose: 2 gm Morphine Sulfate 8 mg/Epinephrine HCl 0.3 mg/Cefuroxime Sodium 750 mg/Ketorolac Tromethamine 30 mg/Sodium Chloride 27.9 ml 0 mg .XX ONETIME ONE Stop: 07/04/16 10:01 Last Admin: 07/04/16 11:52 Dose: 788.3 mg Diphenhydramine HCl (Benadryl) 25 mg IVPUSH Q6H PRN PRN Reason: itching Stop: 07/04/16 12:00 Ephedrine Sulfate (Ephedrine In Ns) Confirm Administered Dose 25 mg .ROUTE .STK- MED ONE Stop: 07/04/16 10:58 Ephedrine Sulfate (Ephedrine In Ns) Confirm Administered Dose 25 mg .ROUTE .STK- MED ONE Stop: 07/04/16 11:23 Ephedrine Sulfate (Ephedrine In Ns) Confirm Administered Dose 25 mg .ROUTE .STK- MED ONE Stop: 07/04/16 11:28 Fentanyl (Sublimaze) 50 mcg IVPUSH Q5M PRN PRN Reason: pain Stop: 07/04/16 12:00 Fentanyl (Sublimaze) Confirm Administered Dose 100 mcg .ROUTE .STK-MED ONE Stop: 07/04/16 11:59 Finasteride (Proscar) 5 mg PO DAILY [facility] Last Admin: 07/04/16 20:43 Dose: 5 mg Finasteride (Proscar) 5 mg PO ONETIME ONE Stop: 07/05/16 10:43 Last Admin: 07/05/16 12:07 Dose: 5 mg Lactated Ringer's (Ringers, Lactated) 1,000 mls @ 125 mls/hr IV ASDIRECTED [facility] Stop: 07/04/16 23:00 Last Admin: 07/04/16 14:54 Dose: 125 mls/hr Cefazolin Sodium/Dextrose 2 gm (/ Premix) 50 mls @ 100 mls/hr IV Q8H [facility] Stop: 07/05/16 10:29 Last Admin: 07/05/16 10:48 Dose: 100 mls/hr Lactated Ringer's (Ringers, Lactated) Confirm Administered Dose 1,000 mls @ as directed .ROUTE .STK-MED ONE Stop: 07/04/16 11:24 Iodine (Iodine 2% Mild Tincture) Confirm Administered Dose 30 ml .ROUTE .STK- MED ONE Stop: 07/04/16 09:15 Last Admin: 07/04/16 11:45 Dose: 18 ml Lidocaine/Sodium Bicarbonate (Buffered Lidocaine 1% In Ns 8.4%) 0.25 ml IV ONETIME PRN PRN Reason: Prior to IV Start Last Admin: 07/04/16 09:35 Dose: 0.25 ml Lorazepam (Ativan) 1 mg IVPUSH BEDTIME ONE Stop: 07/04/16 21:01 Last Admin: 07/04/16 23:02 Dose: 1 mg Midazolam HCl (Versed 1 Mg/Ml) Confirm Administered Dose 2 mg .ROUTE .STK-MED ONE Stop: 07/04/16 10:07 Morphine Sulfate (Duramorph Pf) Confirm Administered Dose 10 mg .ROUTE .STK-MED ONE Stop: 07/04/16 09:39 Naloxone HCl (Narcan) 0.1 mg IVPUSH Q5M PRN PRN Reason: Oversedation Stop: 07/04/16 11:16 Ondansetron HCl (Zofran) 4 mg IVPUSH ONETIME PRN PRN Reason: Nausea/Vomiting Stop: 07/04/16 12:00 Phenylephrine HCl (Phenylephrine In Ns 100 Mcg/Ml) Confirm Administered Dose 1 mg .ROUTE .STK-MED ONE Stop: 07/04/16 10:52 Phenylephrine HCl (Phenylephrine In Ns 100 Mcg/Ml) Confirm Administered Dose 1 mg .ROUTE .STK-MED ONE Stop: 07/04/16 11:35 Propofol (Diprivan 20 Ml) Confirm Administered Dose 200 mg .ROUTE .STK-MED ONE Stop: 07/04/16 10:08 Propofol (Diprivan 20 Ml) Confirm Administered Dose 200 mg .ROUTE .STK-MED ONE Stop: 07/04/16 10:08 Propofol (Diprivan 20 Ml) Confirm Administered Dose 200 mg .ROUTE .STK-MED ONE Stop: 07/04/16 11:14 Propofol (Diprivan 20 Ml) Confirm Administered Dose 200 mg .ROUTE .STK-MED ONE Stop: 07/04/16 11:46 Sodium Chloride (Saline Flush) 10 ml FLUSH ASDIRECTED PRN PRN Reason: Keep Vein Open Tamsulosin HCl (Flomax) 0.4 mg PO DAILY@1730 TARYN Last Admin: 07/04/16 20:43 Dose: 0.4 mg Tranexamic Acid (Cyklokapron) Confirm Administered Dose 1,000 mg .ROUTE .STK- MED ONE Stop: 07/04/16 09:15 Last Admin: 07/04/16 11:58 Dose: 1,000 mg - Exam Wound/Incisions: dressing dry and intact General: alert, cooperative, no acute distress Lungs: Normal respiratory effort Extremities: normal pulses, no calf tenderness, other (NVS intact for RLE. Right thigh soft and nontender. Alix's negative.) - Problem List Review Problem List Initiated/Reviewed/Updated: Yes - My Orders Last 24 Hours: Active Orders 24 hr Category Date Time Status Ready for Discharge [RC] PER UNIT ROUTINE Care 07/05/16 13:09 Active Aspirin [Ecotrin] Med 07/05/16 09:00 Active 325 mg PO BID Cholecalciferol (Vitamin D3) [Vitamin D3] Med 07/05/16 09:00 Active 2,000 units PO DAILY Docusate Sodium [Colace] Med 07/04/16 21:00 Active 100 mg PO BID Famotidine [Pepcid] Med 07/04/16 21:00 Active 20 mg PO BID Finasteride [Proscar] Med 07/05/16 21:00 Active 5 mg PO BEDTIME Tamsulosin [Flomax] Med 07/05/16 21:00 Active 0.4 mg PO BEDTIME Temazepam [Restoril] Med 07/04/16 18:24 Active 30 mg PO BEDTIME PRN Medication Orders Aspirin (Ecotrin) 325 mg PO BID [facility] Last Admin: 07/05/16 08:39 Dose: 325 mg Bisacodyl (Dulcolax) 5 mg PO DAILY PRN PRN Reason: Constipation Cholecalciferol (Vitamin D3) 2,000 units PO DAILY [facility] Last Admin: 07/05/16 08:36 Dose: 2,000 units Citalopram Hydrobromide (Celexa) 40 mg PO Q2D [facility] Last Admin: 07/04/16 16:43 Dose: 40 mg Cyclobenzaprine HCl (Flexeril) 10 mg PO TID PRN PRN Reason: Spasms Last Admin: 07/05/16 16:10 Dose: 10 mg Admin: 07/05/16 08:37 Dose: 10 mg Admin: 07/05/16 02:43 Dose: 10 mg Admin: 07/04/16 16:43 Dose: 10 mg Docusate Sodium (Colace) 100 mg PO BID [facility] Last Admin: 07/05/16 08:36 Dose: 100 mg Admin: 07/04/16 21:29 Dose: 100 mg Famotidine (Pepcid) 20 mg PO BID [facility] Last Admin: 07/05/16 08:36 Dose: 20 mg Admin: 07/04/16 21:29 Dose: 20 mg Finasteride (Proscar) 5 mg PO BEDTIME [facility] Lisinopril (Prinivil) 40 mg PO DAILY [facility] Last Admin: 07/05/16 08:37 Dose: 40 mg Admin: 07/04/16 16:42 Dose: 40 mg Magnesium Hydroxide (Milk Of Magnesia) 30 ml PO BID PRN PRN Reason: Constipation Morphine Sulfate (Morphine) 2 mg IVPUSH Q2H PRN PRN Reason: Breakthrough Pain Ondansetron HCl (Zofran) 4 mg IVPUSH Q6H PRN PRN Reason: Nausea/Vomiting Oxycodone/Acetaminophen (Percocet 325-5 Mg) 1 - 2 tab PO Q4H PRN PRN Reason: Pain Last Admin: 07/05/16 16:10 Dose: 2 tab Admin: 07/05/16 12:08 Dose: 2 tab Admin: 07/05/16 07:59 Dose: 2 tab Admin: 07/05/16 02:43 Dose: 2 tab Admin: 07/04/16 21:29 Dose: 2 tab Admin: 07/04/16 16:45 Dose: 2 tab Senna (Senna) 8.6 mg PO BID PRN PRN Reason: Constipation Tamsulosin HCl (Flomax) 0.4 mg PO BEDTIME [facility] Temazepam (Restoril) 30 mg PO BEDTIME PRN PRN Reason: Insomnia - Assessment Assessment (Free Text/Narrative):: POD#1 - right PRUDENCE - Plan Plan (Free Text/Narrative):: 1. Hgb 12.2 today. 2. Discharge to home today. 3. 325mg ASA BID. TEDs, frequent mobility. 4. Percocet and Flexeril for pain management. The pt's case was discussed with Dr. Paz.
[2016-07-05] MEDS ORDERED: Tamsulosin 0.4 MG Cap.ER PO SCH (21:00)
[2016-07-05] MEDS ORDERED: Finasteride 5 MG Tab PO SCH (21:00)
--- NOTE | 2016-07-12 07:12 | PCM.OPNOTE ---
- General Post-Op/Procedure Note Date of Surgery/Procedure: 07/04/16 Operative Procedure(s): right total hip arthroplasty Pre Op Diagnosis: right hip osteoarthrosis Post-Op Diagnosis: Same Anesthesia Technique: Local, MAC, Spinal Primary Surgeon: Maverick Paz Anesthesia Provider: [place] Najera Devulcanizer Operator: Krystle Oliver Devulcanizer Operator: Savannah Oh EBJeremy in mLs: 600 Complications: None Condition: Good
--- NOTE | 2016-07-12 09:11 | OR ---
DATE OF OPERATION: 07/04/2016 SURGEON: Maverick Paz MD OPERATION PERFORMED: Right total hip arthroplasty. PREOPERATIVE DIAGNOSIS: Right hip osteoarthrosis. POSTOPERATIVE DIAGNOSIS: Right hip osteoarthrosis. ANESTHESIA: Local MAC, spinal. ANESTHESIA PROVIDER: [place]ia Najera. ASSISTANTS: Krystle Oliver PA-C, and Savannah Oh LPN. ESTIMATED BLOOD LOSS: 600 mL. COMPLICATIONS: None. CONDITION: Stable. IMPLANTS: 1. Roxane size 5 Accolade II stem. 2. Roxane size 54 mm Tritanium acetabular cup, solid. 3. A 36 mm, 10-degree elevated liner. 4. A 36 mm, +7 BIOLOX ceramic head. DESCRIPTION OF PROCEDURE: The patient was identified in the preoperative holding area. Proper site was marked and identified by the surgeon. The patient was taken back to the operative theater, where after adequate anesthesia, the patient was placed in the left lateral decubitus position. Axillary wedge was placed along with pegs, and they were well padded. All bony prominences were well padded. At this time, the right hip was then sterilely prepped and draped in the usual sterile fashion. OR-wide time-out was performed. The patient received 2 grams of IV Ancef. At this time, an incision was made centered over the greater trochanter. This was taken down to the IT band and gluteal fascia, which was then incised along the incisional length. Charnley retractor was then placed. Short external rotators were identified. Gluteus medius and minimus were protected and takedown of the short external rotators was done down to the level of lesser trochanter. Hip was then dislocated. Neck cut was then completed. Attention was turned to the acetabulum. Anterior and posterior acetabular retractors were placed. Anterior and posterior labrum were then removed along with the pulvinar. Starting with a 47 reamer, I was able to ream up to a 54 for a 54-mm cup. The trial was found to have adequate fixation. At this time, a 54-mm Tritanium acetabular cup was impacted in to place in roughly 45 to 50 degrees of abduction and 10 to 20 degrees of anteversion. The 36-mm plus 10-degree elevated liner was then impacted into place. Attention was turned to the femur. Femoral elevator was placed. The box chisel was used out laterally and the starter awl was placed down the canal. Starting with the 0 broach, I was able to broach up to a size 5, which was found to be rotationally and vertically stable. At this time, a 127-degree neck was placed and a 36 mm +0 head was trialed. At this time, the leg lengths were found to be short, so a 36 mm +7 head was trialed. At this time, leg lengths were found to be roughly equal, and the patient's hip was brought through range of motion and found to be stable throughout range of motion. The hip was dislocated. Size 5 Accolade II stem was then impacted into place along with 36+ 7 mm head. The hip was then relocated. 1 L dilute Betadine solution was then irrigated through the hip along with 3 L of pulse lavage irrigation with Ancef. Periarticular injection was then completed. Two #5 Ethibond sutures were used for closure of short external rotators and capsule. #2 barbed suture was used for closure of the IT band and gluteal fascia. 2-0 Vicryl was used subcutaneously and Prineo was used for the skin. The patient tolerated the procedure well and was sent to PACU in stable condition. MARIELLA /[id number]
--- NOTE | 2016-07-12 16:00 | PCM.DCSUM1 ---
Discharge Summary - Hospital Course Brief History: Real is a 65 yo male who underwent right PRUDENCE with Dr. Paz on 07-04-16. The procedure was completed under spinal anesthesia with sedation. The pt tolerated the procedure well and was admitted to the [facility] under Medical-Surgical status. Medical management was provided by the Hospitalist service. The pt's Hospital course was uneventful. The pt's Hgb on POD#1 was 12.2. On POD#1, 325mg ASA was initiated for VTE prophylaxis. A Mepilex dressing was placed at the incision site at the time of surgery and remained clean and dry. The pt participated in P.T. and O.T. and progressed well. He followed the PRUDENCE precautions. The pt was allowed to WBAT and he used a FWW for mobility. On POD#1, the pt was deemed appropriate to discharge to home with his . - Discharge Data Discharge Date: 07/05/16 Discharge Disposition: Home, Self-Care 01 Condition: Good - Patient Summary/Data Operative Procedure(s) Performed: right total hip arthroplasty Consults: Consultations 07/04/16 07:08 Consult to Physician [CONS] Routine OT Evaluation and Treatment [CONS] Routine 07/04/16 07:12 PT Evaluation and Treatment [CONS] Routine - Patient Instructions Diet: Usual Diet as Tolerated Activity: Apply Ice, As Tolerated, Elevate Extremity, Full Weight Bearing Activity, Other: Follow the hip precautions. Driving: Do Not Drive Showering/Bathing: May Shower Showering/Bathing, Other: Keep the dressing in place until follow-up. Wound/Incision Care: Keep Operative Site/Wound Site Clean and Dry, Do NOT Change Dressing Notify Provider of: Fever, Increased Pain, Swelling and Redness, Drainage, Nausea and/or Vomiting Other/Special Instructions: Please get up and moving around every hour while awake. This helps to prevent blood clots. Please use your walker and have help with mobility as needed. Please take a 325mg ASPIRIN TWICE DAILY. This also helps to prevent blood clots. Follow the hip precautions that were instructed in the Hospital. You may schedule for P.T. Use the pain medication as needed. The medication may cause drowsiness and constipation. Contact your primary care provider for instructions if you are constipated. You may use a stool softener like docusate sodium or Colace 100mg twice daily and/or a laxative like Miralax daily for constipation. Wear the LYDIA hose during the day and you may remove these at night. Place ice to the hip often. Place a towel between your skin and the blue pad. Schedule an appointment with your primary care provider for 'routine post-op care'. Call the Clinic with questions or concerns - [phone]. - Discharge Plan Prescriptions/Med Rec: Acetaminophen/oxyCODONE [Percocet 325-5 MG] 1 - 2 tab PO Q4H PRN #60 tablet PRN Reason: Pain Aspirin [Ecotrin] 325 mg PO BID #70 tab.ec Cyclobenzaprine [Flexeril] 10 mg PO TID PRN #40 tablet PRN Reason: muscle spasms Home Medications: Home Meds Ascorbic Acid [Vitamin C] 500 mg PO DAILY 07/01/16 [History] Cholecalciferol (Vitamin D3) [Vitamin D3] 2,000 unit PO DAILY 07/01/16 [History] Citalopram [Citalopram HBr] 40 mg PO Q2D 07/01/16 [History] Dutasteride 0.5 mg PO DAILY 07/01/16 [History] Gelatin 600 mg PO DAILY 07/01/16 [History] Gluc/Palomo-Msm#1/Vit C/Geoffrey/Bor [Adnqdis-Gtjvg-CHK Complex Cplt] 1 tab PO DAILY 07/01/16 [History] Lisinopril 40 mg PO DAILY 07/01/16 [History] Tamsulosin HCl 0.4 mg PO DAILY 07/01/16 [History] Zolpidem Tartrate 10 mg PO BEDTIME 07/01/16 [History] Acetaminophen/oxyCODONE [Percocet 325-5 MG] 1 - 2 tab PO Q4H PRN #60 tablet [Rx] Aspirin [Ecotrin] 325 mg PO BID #70 tab.ec 07/05/16 [Rx] Cyclobenzaprine [Flexeril] 10 mg PO TID PRN #40 tablet 07/05/16 [Rx] Patient Handouts: Total Hip Replacement, Wtgr-[id number], Hip Rehabilitation After Surgery, Aspirin, ASA oral tablets, Total Hip Replacement, Care After, [id number] Referrals: Shayy Pritchard NP [Primary Care Provider] - Krystle Oliver PA-C [Physician Journeyman Pressman] - - Patient Data Vitals - Most Recent: Last Vital Signs Temp 98.8 F 07/05/16 11:08 Pulse 100 07/05/16 11:08 Resp 16 07/05/16 11:08 BP 115/70 07/05/16 11:08 Pulse Ox 97 07/05/16 12:00 Weight - Most Recent: 227 lb 9.6 oz Med Orders - Current: Current Medications Discontinued Medications Aspirin (Ecotrin) 325 mg PO BID [facility] Last Admin: 07/05/16 08:39 Dose: 325 mg Bisacodyl (Dulcolax) 5 mg PO DAILY PRN PRN Reason: Constipation Bupivacaine HCl (Marcaine 0.25%) Confirm Administered Dose 30 ml .ROUTE .STK- MED ONE Stop: 07/04/16 09:15 Last Admin: 07/04/16 11:53 Dose: 30 ml Cefazolin Sodium (Ancef) Confirm Administered Dose 1 gm .ROUTE .STK-MED ONE Stop: 07/04/16 09:15 Cefazolin Sodium (Ancef) Confirm Administered Dose 2 gm .ROUTE .STK-MED ONE Stop: 07/04/16 09:41 Last Admin: 07/04/16 11:48 Dose: 2 gm Cholecalciferol (Vitamin D3) 2,000 units PO DAILY [facility] Last Admin: 07/05/16 08:36 Dose: 2,000 units Citalopram Hydrobromide (Celexa) 40 mg PO Q2D [facility] Last Admin: 07/04/16 16:43 Dose: 40 mg Morphine Sulfate 8 mg/Epinephrine HCl 0.3 mg/Cefuroxime Sodium 750 mg/Ketorolac Tromethamine 30 mg/Sodium Chloride 27.9 ml 0 mg .XX ONETIME ONE Stop: 07/04/16 10:01 Last Admin: 07/04/16 11:52 Dose: 788.3 mg Cyclobenzaprine HCl (Flexeril) 10 mg PO TID PRN PRN Reason: Spasms Last Admin: 07/05/16 16:10 Dose: 10 mg Diphenhydramine HCl (Benadryl) 25 mg IVPUSH Q6H PRN PRN Reason: itching Stop: 07/04/16 12:00 Docusate Sodium (Colace) 100 mg PO BID [facility] Last Admin: 07/05/16 08:36 Dose: 100 mg Ephedrine Sulfate (Ephedrine In Ns) Confirm Administered Dose 25 mg .ROUTE .STK- MED ONE Stop: 07/04/16 10:58 Ephedrine Sulfate (Ephedrine In Ns) Confirm Administered Dose 25 mg .ROUTE .STK- MED ONE Stop: 07/04/16 11:23 Ephedrine Sulfate (Ephedrine In Ns) Confirm Administered Dose 25 mg .ROUTE .STK- MED ONE Stop: 07/04/16 11:28 Famotidine (Pepcid) 20 mg PO BID [facility] Last Admin: 07/05/16 08:36 Dose: 20 mg Fentanyl (Sublimaze) 50 mcg IVPUSH Q5M PRN PRN Reason: pain Stop: 07/04/16 12:00 Fentanyl (Sublimaze) Confirm Administered Dose 100 mcg .ROUTE .STK-MED ONE Stop: 07/04/16 11:59 Finasteride (Proscar) 5 mg PO DAILY [facility] Last Admin: 07/04/16 20:43 Dose: 5 mg Finasteride (Proscar) 5 mg PO BEDTIME [facility] Finasteride (Proscar) 5 mg PO ONETIME ONE Stop: 07/05/16 10:43 Last Admin: 07/05/16 12:07 Dose: 5 mg Lactated Ringer's (Ringers, Lactated) 1,000 mls @ 125 mls/hr IV ASDIRECTED [facility] Stop: 07/04/16 23:00 Last Admin: 07/04/16 14:54 Dose: 125 mls/hr Cefazolin Sodium/Dextrose 2 gm (/ Premix) 50 mls @ 100 mls/hr IV Q8H [facility] Stop: 07/05/16 10:29 Last Admin: 07/05/16 10:48 Dose: 100 mls/hr Lactated Ringer's (Ringers, Lactated) Confirm Administered Dose 1,000 mls @ as directed .ROUTE .STK-MED ONE Stop: 07/04/16 11:24 Iodine (Iodine 2% Mild Tincture) Confirm Administered Dose 30 ml .ROUTE .STK- MED ONE Stop: 07/04/16 09:15 Last Admin: 07/04/16 11:45 Dose: 18 ml Lidocaine/Sodium Bicarbonate (Buffered Lidocaine 1% In Ns 8.4%) 0.25 ml IV ONETIME PRN PRN Reason: Prior to IV Start Last Admin: 07/04/16 09:35 Dose: 0.25 ml Lisinopril (Prinivil) 40 mg PO DAILY TARYN Last Admin: 07/05/16 08:37 Dose: 40 mg Lorazepam (Ativan) 1 mg IVPUSH BEDTIME ONE Stop: 07/04/16 21:01 Last Admin: 07/04/16 23:02 Dose: 1 mg Magnesium Hydroxide (Milk Of Magnesia) 30 ml PO BID PRN PRN Reason: Constipation Midazolam HCl (Versed 1 Mg/Ml) Confirm Administered Dose 2 mg .ROUTE .STK-MED ONE Stop: 07/04/16 10:07 Morphine Sulfate (Morphine) 2 mg IVPUSH Q2H PRN PRN Reason: Breakthrough Pain Morphine Sulfate (Duramorph Pf) Confirm Administered Dose 10 mg .ROUTE .STK-MED ONE Stop: 07/04/16 09:39 Naloxone HCl (Narcan) 0.1 mg IVPUSH Q5M PRN PRN Reason: Oversedation Stop: 07/04/16 11:16 Ondansetron HCl (Zofran) 4 mg IVPUSH Q6H PRN PRN Reason: Nausea/Vomiting Ondansetron HCl (Zofran) 4 mg IVPUSH ONETIME PRN PRN Reason: Nausea/Vomiting Stop: 07/04/16 12:00 Oxycodone/Acetaminophen (Percocet 325-5 Mg) 1 - 2 tab PO Q4H PRN PRN Reason: Pain Last Admin: 07/05/16 16:10 Dose: 2 tab Phenylephrine HCl (Phenylephrine In Ns 100 Mcg/Ml) Confirm Administered Dose 1 mg .ROUTE .STK-MED ONE Stop: 07/04/16 10:52 Phenylephrine HCl (Phenylephrine In Ns 100 Mcg/Ml) Confirm Administered Dose 1 mg .ROUTE .STK-MED ONE Stop: 07/04/16 11:35 Propofol (Diprivan 20 Ml) Confirm Administered Dose 200 mg .ROUTE .STK-MED ONE Stop: 07/04/16 10:08 Propofol (Diprivan 20 Ml) Confirm Administered Dose 200 mg .ROUTE .STK-MED ONE Stop: 07/04/16 10:08 Propofol (Diprivan 20 Ml) Confirm Administered Dose 200 mg .ROUTE .STK-MED ONE Stop: 07/04/16 11:14 Propofol (Diprivan 20 Ml) Confirm Administered Dose 200 mg .ROUTE .STK-MED ONE Stop: 07/04/16 11:46 Senna (Senna) 8.6 mg PO BID PRN PRN Reason: Constipation Sodium Chloride (Saline Flush) 10 ml FLUSH ASDIRECTED PRN PRN Reason: Keep Vein Open Tamsulosin HCl (Flomax) 0.4 mg PO DAILY@1730 TARYN Last Admin: 07/04/16 20:43 Dose: 0.4 mg Tamsulosin HCl (Flomax) 0.4 mg PO BEDTIME TARYN Temazepam (Restoril) 30 mg PO BEDTIME PRN PRN Reason: Insomnia Tranexamic Acid (Cyklokapron) Confirm Administered Dose 1,000 mg .ROUTE .[employer]- MED ONE Stop: 07/04/16 09:15 Last Admin: 07/04/16 11:58 Dose: 1,000 mg *Q Meaningful Use (DIS) - VTE *Q VTE Criteria *Q: - Stroke *Q Stroke Criteria *Q: - AMI *Q AMI Criteria *Q:
== END 2016-07-05 17:00 | disposition home or self-care (01) | DRG 470 ==
LOC: JD.MS 08:57 → JD.OB 13:31 → JD.MS 07-05 16:50 → UNDODISIN 07-05 17:00
PROVIDERS: ADMIT Orthopaedic Surgery; ATTEND Orthopaedic Surgery
PROC: 0SR903A Replacement of Right Hip Joint with Ceramic Synthetic Substitute, Uncemented, Open Approach (ICD-10-PCS; principal; 2016-07-04)
DX: M16.11 Unilateral primary osteoarthritis, right hip (principal); I10 Essential (primary) hypertension; Z88.8 Allergy status to other drugs, medicaments and biological substances; Z79.899 Other long term (current) drug therapy
CPT/HCPCS: 01214; 36415; 73501-26-RT; 73501-RT; 80053; 85025; 86850; 86900; 86901; 87641; 94762; 97110-GP; 97116-GP; 97161-GP; 97166-GO; 97535-GO; A9270-GY; C1776; J0171; J0690; J0697; J1885; J2060; J2250; J2270; J2704; J3010; J3490; J7050; J7120

== ENCOUNTER 2021-04-05 11:21 | Day surgery (SDC) | payer MEDICARE, OTHER ==
[~2021-04-05 11:21] MED LIST changes: +Acetaminophen 325 MG Tab PO SCH; -Bisacodyl 5 MG Tab PO PRN; +EPINEPHrine 1 MG/ML SDV ONE; +Lactated Ringers 1,000 ML IV SCH; +Lidocaine 1% 4 ML ONE; +Lidocaine 1%/Sod Bicarbonate in NS 8.4% 1 ML Syringe IDERM PRN; -Lidocaine 1%/Sod Bicarbonate in NS 8.4% 1 ML Syringe IV PRN; -Magnesium Hydroxide 400 MG/5 ML Susp 30 ML Cup PO PRN; +Midazolam 1 MG/ML 2 ML SDV ONE; -Morphine 2 MG/ML Syringe IVPUSH PRN; -Ondansetron 4 MG/2 ML SDV IVPUSH PRN; +Pregabalin 25 MG Cap PO SCH; +Propofol 200 MG/20 ML SDV ONE; +Ropivacaine 0.5% 5 MG/ML 30 ML SDV ONE; -Sennosides 8.6 MG Tab PO PRN; +Sodium Chloride 0.9% 10 ML Syringe FLUSH SCH; +ceFAZolin 1 GM Vial ONE; +fentaNYL 100 MCG/2 ML SDV ONE; +oxyCODONE ER 10 MG TAB.ER PO SCH
[2021-04-05] MEDS ORDERED: Lactated Ringers 1,000 ML ONE (12:22)
[2021-04-05] MEDS ORDERED: Midazolam 1 MG/ML 2 ML SDV ONE (12:39)
[2021-04-05] MEDS ORDERED: Propofol 200 MG/20 ML SDV ONE ×2 (12:51→13:24)
[2021-04-05] MEDS: Vancomycin 1 GM SDV ONE ×2 (13:04→13:25)
[2021-04-05] MEDS: Morphine 8 MG, EPINEPHrine 0.3 MG, Cefuroxime 750 MG, Ketorolac 30 MG, Sodium Chloride ... PRN ×15 (13:05→13:25)
[2021-04-05] MEDS ORDERED: Ondansetron 4 MG/2 ML SDV IVPUSH PRN (13:59)
[2021-04-05] MEDS ORDERED: fentaNYL 100 MCG/2 ML SDV IVPUSH PRN (13:59)
[2021-04-06 07:40] VITALS: BP 128/88; PULSE 77
== END 2021-04-05 17:35 | disposition home or self-care (01) ==
LOC: JD.SDS 11:21
PROVIDERS: ATTEND Orthopaedic Surgery
DX: M17.12 Unilateral primary osteoarthritis, left knee (principal); N40.0 Benign prostatic hyperplasia without lower urinary tract symptoms; E78.5 Hyperlipidemia, unspecified; I10 Essential (primary) hypertension; G47.00 Insomnia, unspecified; G47.30 Sleep apnea, unspecified; Z87.891 Personal history of nicotine dependence; Z88.8 Allergy status to other drugs, medicaments and biological substances; Z98.890 Other specified postprocedural states
CPT/HCPCS: 27447; 73560; 97110; 97116; 97161; A9270; C1713; C1776; J0171; J0690; J0697; J1885; J2250; J2270; J2370; J2704; J2795; J3010; J3370; J7120; 01402; 64450; 76942; 99100

== ENCOUNTER 2021-05-17 11:21 | Emergency (ER) | payer MEDICARE, OTHER ==
[2021-05-17 11:33] VITALS: BP 127/70; PULSE 77
[2021-05-17] MEDS ORDERED: Lidocaine 2% Jelly 10 ML Urojet MUCMEM ONE ×2 (11:41→15:44)
[2021-05-17] MEDS ORDERED: Lidocaine 2% Jelly 10 ML Urojet ONE (15:20)
[2021-05-17] MEDS ORDERED: Magnesium Citrate Solution 296 ML Bottle ONE (15:44)
[2021-05-17] MEDS ORDERED: Magnesium Citrate Solution 296 ML Bottle PO ONE (16:12)
== END 2021-05-17 18:10 | disposition home or self-care (01) ==
LOC: JD.ED 11:21
DX: K59.00 Constipation, unspecified (principal); I10 Essential (primary) hypertension; E03.9 Hypothyroidism, unspecified; Z88.5 Allergy status to narcotic agent; Z88.8 Allergy status to other drugs, medicaments and biological substances; Z79.82 Long term (current) use of aspirin; Z79.899 Other long term (current) drug therapy
CPT/HCPCS: 74019; 99283; A9270; 99284

== ENCOUNTER 2021-06-21 09:48 | Day surgery (SDC) | payer MEDICARE, OTHER ==
[2021-06-21] MEDS ORDERED: Lidocaine 1%/Sod Bicarbonate in NS 8.4% 1 ML Syringe IDERM PRN (10:08)
[2021-06-21] MEDS ORDERED: Sodium Chloride 0.9% 10 ML Syringe FLUSH PRN (10:08)
[2021-06-21] MEDS ORDERED: Lactated Ringers 1,000 ML IV SCH (10:15)
[2021-06-21] MEDS ORDERED: Lidocaine 1% 4 ML ONE (10:47)
[2021-06-21] MEDS ORDERED: fentaNYL 100 MCG/2 ML SDV ONE (10:47)
[2021-06-21] MEDS ORDERED: Midazolam 1 MG/ML 2 ML SDV ONE (10:48)
[2021-06-21] MEDS ORDERED: Propofol 200 MG/20 ML SDV ONE ×2 (10:48→13:08)
[2021-06-21] MEDS ORDERED: Bupivacaine 0.25% 10 ML SDV ONE (11:10)
[2021-06-21] MEDS ORDERED: Lidocaine 1% 30 ML SDV ONE (11:10)
[2021-06-21] MEDS ORDERED: ceFAZolin 1 GM Vial ONE (11:43)
[2021-06-21] MEDS ORDERED: HYDROmorphone 0.5 MG/0.5 ML Syringe IVPUSH PRN (13:26)
[2021-06-21] MEDS ORDERED: fentaNYL 100 MCG/2 ML SDV IVPUSH PRN (13:26)
[2021-06-21] MEDS ORDERED: Ondansetron 4 MG/2 ML SDV IVPUSH PRN (13:26)
[2021-06-21] MEDS ORDERED: oxyCODONE 5 MG Tab PO ONE (14:30)
[2021-06-21 16:26] VITALS: BP 121/82; PULSE 82
[2021-06-21] MEDS ORDERED: Sodium Chloride 0.9% 10 ML Syringe FLUSH SCH (21:00)
== END 2021-06-21 14:15 | disposition home or self-care (01) ==
LOC: JD.SDS 09:48
PROVIDERS: ATTEND Orthopaedic Surgery
DX: T81.41XA Infection following a procedure, superficial incisional surgical site, initial encounter (principal); G47.00 Insomnia, unspecified; I10 Essential (primary) hypertension; G47.33 Obstructive sleep apnea (adult) (pediatric); F17.200 Nicotine dependence, unspecified, uncomplicated; E78.5 Hyperlipidemia, unspecified; E55.9 Vitamin D deficiency, unspecified; Z88.8 Allergy status to other drugs, medicaments and biological substances; Z88.5 Allergy status to narcotic agent; Z96.652 Presence of left artificial knee joint; Z79.899 Other long term (current) drug therapy; Z85.828 Personal history of other malignant neoplasm of skin
CPT/HCPCS: 27301; J0690; J2250; J2704; J3010; J3490; J7120; 01250; 99100